=== PATIENT | female | born 1960 | race Two or more races ===

== ENCOUNTER 2016-11-01 11:41 | Emergency (ER) | payer MEDICAID ==
[~2016-11-01] VITALS: Ht 172.7 cm; Wt 113.4 kg
--- NOTE | 2016-11-01 12:05 | NUR ---
PATIENT PRESENTS TO ER C/O RIGHT EYE SWELLING AND PAIN. PATIENT DENIES TRAUMA. PATIENT'S A/OX 4. BREATHING EVEN AND UNLABORED. NO SOB. VITALS STABLE. SAFETY AND COMFORT MEASURES IN PLACE. AWAITING MD ORDERS.
--- NOTE | 2016-11-01 12:10 | NUR ---
DR. DELVALLE AT BEDSIDE FOR EVAL .
--- NOTE | 2016-11-01 12:25 | NUR ---
Patient discharged to home in stable condition. Written and verbal after care instructions given. Patient verbalizes understanding of instruction.
[2016-11-01 12:28] VITALS: BP 138/86
== END 2016-11-01 12:25 | disposition home or self-care (01) ==
LOC: ER 11:48
DX: T78.49XA Other allergy, initial encounter (principal); I10 Essential (primary) hypertension; E11.9 Type 2 diabetes mellitus without complications; X58.XXXA Exposure to other specified factors, initial encounter
CPT/HCPCS: A4606; Z7610

== ENCOUNTER 2017-01-21 11:54 | Emergency (ER) | payer MEDICAID ==
[~2017-01-21] VITALS: Ht 172.7 cm; Wt 117.9 kg
--- NOTE | 2017-01-21 11:56 | NUR ---
PT TO ER BED 01 WAS SENT FROM [facility] OFFICE FOR SVT. PT WAS C/O A CHOKING SENSATION. 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 GOWNED AND PLACED ON MONITOR. AWAITING MD TORRES.
--- NOTE | 2017-01-21 12:16 | NUR ---
IV LINE STARTED BLOOD DRAWN AND SENT TO LAB.
[2017-01-21] MEDS ORDERED: ADENOSINE 6 MG/2 ML VIAL ONE (12:18)
[2017-01-21 12:27] LABS: BASOPHILS # (AUTO) 0.8 /CMM (0.0-0.2); BASOPHILS % (AUTO) 4.9 % (0.0-2.0); EOSINOPHILS % (AUTO) 0.3 % (0.0-6.0); HEMATOCRIT 43 % (33-45); HEMOGLOBIN 14.1 g/dL (11.5-14.8); LYMPHOCYTES # (AUTO) 4.1 /CMM (0.8-4.8); LYMPHOCYTES % (AUTO) 24.5 % (20.0-44.0); MEAN CORPUSCULAR HEMOGLOBIN 29 PG (26.0-33.0); MEAN CORPUSCULAR HGB CONC 33 g/dl (31.0-36.0); MEAN CORPUSCULAR VOLUME 87 fL (82-100); MONOCYTES # (AUTO) 0.9 /CMM (0.1-1.30); MONOCYTES % (AUTO) 5.2 % (2.0-12.0); NEUTROPHILS # (AUTO) 10.8 /CMM (1.8-8.9); NEUTROPHILS % (AUTO) 65.1 % (43.0-81.0); PLATELET COUNT (AUTO) 434 /CMM (150-450); RDW COEFFICIENT OF VARIATION 12.8 (11.5-15.0); RED BLOOD CELL COUNT(AUTO) 4.89 MIL/uL (4.0-5.2); WHITE BLOOD COUNT (AUTO) 16.6 K/uL (4.3-11.0)
--- NOTE | 2017-01-21 12:27 | NUR ---
NO CONVERSION AFTER PT WAS GIVEN 6MG ADENOSINE. 12MG IVP GIVEN PER DR HAINES ORDER.
[2017-01-21] MEDS ORDERED: ONDANSETRON HCL/PF 4 MG/2 ML VIAL ONE (12:28)
[2017-01-21] MEDS ORDERED: ONDANSETRON HCL/PF 4 MG/2 ML VIAL IV ONE (12:30)
[2017-01-21] MEDS ORDERED: ADENOSINE 6 MG/2 ML VIAL IVP ONE ×2 (12:30→13:00)
[2017-01-21 12:34] LABS: CALCIUM, SERUM 9.2 mg/dL (8.5-10.1); CREATININE 1.2 mg/dL (0.6-1.3); POTASSIUM 4.5 mmol/L (3.5-5.1)
--- NOTE | 2017-01-21 12:34 | NUR ---
RADIOLOGY AT BEDSIDE FOR CHEST XRAY.
[2017-01-21 12:37] LABS: INR 0.99 (0.87-1.13); PROTHROMBIN TIME 10.3 SECS (9.5-12.7)
[2017-01-21 12:43] LABS: TROPONIN I 0.232 ng/mL (0.00-0.056)
--- NOTE | 2017-01-21 13:39 | NUR ---
DR. SALES PAGED
--- NOTE | 2017-01-21 13:44 | NUR ---
PT IS RESTING IN BED. STABLE VITALS. DENIES CHEST PAIN. WILL CONITINUE TO MONITOR.
--- NOTE | 2017-01-21 14:02 | NUR ---
DR. SALES PAGED 2ND TIME
--- NOTE | 2017-01-21 14:57 | NUR ---
IV removed. Catheter intact and site benign. Pressure and 4x4 applied to site. No bleeding noted.Patient discharged to home in stable condition. Written and verbal after care instructions given. Patient verbalizes understanding of instruction.
[2017-01-21 14:58] VITALS: BP 142/85
--- NOTE | 2017-01-21 14:58 | NUR ---
Patient discharged to home in stable condition. Written and verbal after care instructions given. Patient verbalizes understanding of instruction.IV removed. Catheter intact and site benign. Pressure and 4x4 applied to site. No bleeding noted.
== END 2017-01-21 15:00 | disposition home or self-care (01) ==
LOC: ER 11:59
DX: I47.1 Supraventricular tachycardia (principal); I10 Essential (primary) hypertension; E11.9 Type 2 diabetes mellitus without complications
CPT/HCPCS: 36415; 71010; 80048; 83735; 84484 ×2; 85025; 85730; 93005; 96374; 99291; A4606; J0153; J2405; Z7610

== ENCOUNTER 2021-05-14 20:32 | Emergency (ER) | payer MEDICAID ==
[~2021-05-14] VITALS: Ht 172.7 cm; Wt 95.3 kg
--- NOTE | 2021-05-14 20:45 | NUR ---
PT BIBSELF C/O RT ELBOW PAIN S/P TRIP AND FALL. PT AAOX4 BREATHING EVENLY AND UNLABORED. PT DENIES HITTING HEAD AND DENIES KO. PT ATTACHED TO MONITOR AND POX. PT GIVEN BLANKET AND CALL LIGHT WITHIN REACH
[2021-05-14] MEDS ORDERED: IBUPROFEN 600 MG TABLET PO ONE (21:00)
[2021-05-14] MEDS ORDERED: IBUPROFEN 600 MG TABLET ONE (21:00)
--- NOTE | 2021-05-14 21:00 | NUR ---
TAKEN TO RADIOLOGY
--- NOTE | 2021-05-14 21:55 | NUR ---
CALLED [facility] TO HAVE IMAGES READ
[2021-05-14] MEDS ORDERED: IBUP-1955 PO (22:17)
[2021-05-14] MEDS ORDERED: HYDR-4209 PO (22:17)
--- NOTE | 2021-05-14 22:29 | NUR ---
Patient discharged to home in stable condition. Written and verbal after care instructions given. Patient verbalizes understanding of instruction. Pt ambulatory with a steady gait
[2021-05-14 22:32] VITALS: BP 144/78
== END 2021-05-14 22:29 | disposition home or self-care (01) ==
LOC: ER 20:40
DX: S52.121A Displaced fracture of head of right radius, initial encounter for closed fracture (principal); I10 Essential (primary) hypertension; E11.9 Type 2 diabetes mellitus without complications; W01.0XXA Fall on same level from slipping, tripping and stumbling without subsequent striking against object, initial encounter; Y93.89 Activity, other specified; Y92.89 Other specified places as the place of occurrence of the external cause; Y99.8 Other external cause status
CPT/HCPCS: 73080-TC